=== PATIENT | female | born 1960 | race Asian ===

== ENCOUNTER 2021-10-30 20:05 | Inpatient (IN) | payer OTHER ==
[~2021-10-30 20:05] MED LIST: Iopamidol 300 61% 100 ML VIAL FS ONE
[2021-10-30] MEDS ORDERED: Morphine 4 MG/ML VIAL ONE (20:55)
[2021-10-30] MEDS ORDERED: hydrALAZINE 25 MG TAB ONE (20:56)
[2021-10-30] MEDS ORDERED: hydrALAZINE 20 MG/ML VIAL ONE (20:56)
[2021-10-30 21:00] LABS: #Basophils 0.1 10x3/uL (0.0-0.2); #Eosinphils 0.7 10x3/uL (0.0-0.5); #Monocytes 0.5 10x3/uL (0.0-1.1); #Neutrophils 2.1 10x3/uL (1.5-8.4); %Basophils 1.3 % (0.0-2.0); %Eosinophils 15.6 % (0.0-6.0); %Lymphocytes 25.7 % (18.0-47.0); %Monocytes 11.6 % (0.0-10.0); %Neutrophils 45.2 % (40.0-75.0); Hemoglobin 10.8 g/dL (12.0-15.5); Mean Corpuscular HGB CONC 34.8 g/dL (32.0-36.0); Mean Corpuscular Hemoglobin 33.8 pg (27.0-33.0); Mean Corpuscular Volume 96.9 fl (81.6-98.3); Mean Platelet Volume 9.8 fl (7.4-10.4); Platelet Count 146 10x3/uL (150-450); RBC Distribution Width 14.6 % (11.5-14.5); White Blood Cell (WBC) Count 4.7 10x3/uL (3.5-10.5)
[2021-10-30 21:12] LABS: ALT (SGPT) 12 U/L (8-55); AST (SGOT) 21 U/L (5-34); Albumin 3.8 g/dL (3.5-5.0); Alkaline Phosphatase 41 U/L (40-110); Anion Gap 24 mmol/L (10-20); BUN (Urea Nitrogen) 72 mg/dL (9.8-20.1); Bilirubin, Total 0.7 mg/dL (0.2-1.2); Calc. Creatinine Clearance 0 mL/min (70-130); Calcium 9.7 mg/dL (7.8-10.44); Carbon Dioxide 23 mmol/L (22-29); Chloride 93 mmol/L (98-107); Globulin 3.5 g/dL (2.4-3.5); Glucose 83 mg/dL (70-105); Protein, Total 7.3 g/dL (6.0-8.3); Sodium 133 mmol/L (136-145)
[2021-10-30 21:19] LABS: Potassium 7.4 mmol/L (3.5-5.1)
[2021-10-30 21:33] LABS: CKMB 1.3 ng/mL (0-6.6)
[2021-10-30] MEDS ORDERED: cefTRIAXone\\ROCEPHIN 1 GM VIAL ONE (21:48)
[2021-10-30] MEDS ORDERED: Azithromycin 500 MG VIAL ONE (21:49)
[2021-10-30 22:51] LABS: SARS-CoV-2 NAA Rapid Test Not Detected (NotDetected)
[2021-10-30] MEDS ORDERED: Acetaminophen 325 MG TAB PO PRN (23:20)
[2021-10-30] MEDS ORDERED: VANCOMYCIN 1.25 GM/250 ML BAG IVPB SCH (23:30)
[2021-10-30] MEDS ORDERED: VANCOMYCIN 1.25 GM/250 ML BAG 1.25 GM in Premix Bag 1 BAG IVPB SCH (23:45)
[2021-10-30] MEDS ORDERED: Promethazine HCl 12.5 MG, Admixture Fee 1 EACH in Sodium Chloride 0.9% 50 ML IVPB PRN (23:45)
[2021-10-31] MEDS ORDERED: Cefepime 1 GM in Sodium Chloride 0.9% 100 ML IVPB SCH ×2 (00:15→07:30)
[2021-10-31] MEDS ORDERED: Vancomycin Hemodialysis Sliding Scale FS SCH (00:15)
[2021-10-31 00:28] LABS: Hep B Surf Ag Non-Reactive S/CO (NonReactive)
[2021-10-31 00:36] LABS: HBSAg Index 0.19 S/CO (0-0.99)
[2021-10-31] MEDS: Vancomycin HCl 1 GM in Sodium Chloride 0.9% 250 ML 250 ML IVPB SCH ×2 (00:56→01:20)
[2021-10-31] MEDS ORDERED: Vancomycin HCl 1 GM in Sodium Chloride 0.9% 250 ML 250 ML IVPB SCH (03:00)
[2021-10-31 04:23] LABS: Troponin I 0.063 ng/mL (< 0.028)
[2021-10-31 04:25] LABS: Anion Gap 17 mmol/L (10-20); BUN (Urea Nitrogen) 21 mg/dL (9.8-20.1); Calc. Creatinine Clearance 10 mL/min (70-130); Calcium 8.9 mg/dL (7.8-10.44); Carbon Dioxide 29 mmol/L (22-29); Chloride 91 mmol/L (98-107); Glucose 78 mg/dL (70-105); Magnesium 1.9 mg/dL (1.6-2.6); Potassium 3.9 mmol/L (3.5-5.1); Sodium 133 mmol/L (136-145)
[2021-10-31 04:31] LABS: #Eosinphils 0.2 10x3/uL (0.0-0.5); #Monocytes 0.4 10x3/uL (0.0-1.1); #Neutrophils 2.5 10x3/uL (1.5-8.4); %Basophils 1.1 % (0.0-2.0); %Monocytes 11.1 % (0.0-10.0); %Neutrophils 69.5 % (40.0-75.0); Hemoglobin 9.1 g/dL (12.0-15.5); Mean Corpuscular HGB CONC 32.9 g/dL (32.0-36.0); Mean Corpuscular Hemoglobin 32.9 pg (27.0-33.0); Mean Corpuscular Volume 97.5 fl (81.6-98.3); Mean Platelet Volume 9.7 fl (7.4-10.4); Platelet Count 133 10x3/uL (150-450); RBC Distribution Width 14.5 % (11.5-14.5); Red Blood Cell (RBC) Count 2.77 10x6/uL (3.90-5.03); White Blood Cell (WBC) Count 3.6 10x3/uL (3.5-10.5)
[2021-10-31] MEDS: Levothyroxine Sodium 125 MCG TAB PO SCH (05:43)
[2021-10-31] MEDS ORDERED: Labetalol HCl 100 MG/20 ML VIAL SLOW IVP SCH (06:00)
[2021-10-31] MEDS: Heparin 5,000 UNITS/ML VIAL SC SCH ×3 (08:00→20:08)
[2021-10-31] MEDS: Metoprolol Tartrate 25 MG TAB PO SCH ×2 (09:16→20:06)
[2021-10-31] MEDS ORDERED: Artificial Tear Sol 15 ML BOT EA EYE PRN (09:47)
[2021-10-31] MEDS ORDERED: Loratadine 10 MG TAB PO PRN (09:47)
[2021-10-31] MEDS ORDERED: Acetaminophen 650 MG Suppository PR PRN (09:47)
[2021-10-31] MEDS ORDERED: Moisturizing Cream (Eucerin) 113 GM JAR TOP PRN (09:47)
[2021-10-31] MEDS ORDERED: Promethazine 25 MG TAB PO PRN (09:47)
[2021-10-31] MEDS ORDERED: Calcium Carbonate 500 MG ChewTAB PO PRN (09:47)
[2021-10-31] MEDS ORDERED: Sodium Chloride 0.65% Nasal 44 ML BOT EA NARE PRN (09:47)
[2021-10-31] MEDS ORDERED: Promethazine HCl 25 MG SUPP PR PRN (09:47)
[2021-10-31] MEDS: Benzonatate 100 MG CAP PO PRN ×2 (09:59→16:58)
[2021-10-31] MEDS: Sevelamer Carbonate 800 MG TAB PO SCH ×2 (12:11→16:59)
[2021-10-31 13:09] LABS: HBSAB Concentration 678.52 mIU/mL; Hep B Surf AB Reactive (NonReactive)
[2021-10-31] MEDS: cefTRIAXone\\ROCEPHIN 1 GM in Sodium Chloride 0.9% 100 ML IVPB SCH (20:08)
[2021-11-01] MEDS: Benzonatate 100 MG CAP PO PRN ×3 (02:21→16:16)
[2021-11-01 04:51] LABS: #Basophils 0.1 10x3/uL (0.0-0.2); #Eosinphils 0.8 10x3/uL (0.0-0.5); #Monocytes 0.6 10x3/uL (0.0-1.1); #Neutrophils 1.8 10x3/uL (1.5-8.4); %Basophils 1.2 % (0.0-2.0); %Lymphocytes 22.1 % (18.0-47.0); %Monocytes 14.9 % (0.0-10.0); %Neutrophils 43.3 % (40.0-75.0); Hemoglobin 9.8 g/dL (12.0-15.5); Mean Corpuscular HGB CONC 33.6 g/dL (32.0-36.0); Mean Corpuscular Hemoglobin 33.1 pg (27.0-33.0); Mean Corpuscular Volume 98.6 fl (81.6-98.3); Mean Platelet Volume 10.2 fl (7.4-10.4); Platelet Count 100 10x3/uL (150-450); RBC Distribution Width 14.8 % (11.5-14.5); Red Blood Cell (RBC) Count 2.96 10x6/uL (3.90-5.03); White Blood Cell (WBC) Count 4.2 10x3/uL (3.5-10.5)
[2021-11-01 04:54] LABS: ALT (SGPT) 9 U/L (8-55); AST (SGOT) 22 U/L (5-34); Albumin 3.1 g/dL (3.5-5.0); Alkaline Phosphatase 35 U/L (40-110); Anion Gap 19 mmol/L (10-20); BUN (Urea Nitrogen) 33 mg/dL (9.8-20.1); Bilirubin, Total 0.4 mg/dL (0.2-1.2); Calc. Creatinine Clearance 6 mL/min (70-130); Calcium 9.3 mg/dL (7.8-10.44); Carbon Dioxide 25 mmol/L (22-29); Chloride 94 mmol/L (98-107); Globulin 3.4 g/dL (2.4-3.5); Glucose 70 mg/dL (70-105); Potassium 5.3 mmol/L (3.5-5.1); Protein, Total 6.5 g/dL (6.0-8.3); Sodium 133 mmol/L (136-145)
[2021-11-01 05:04] LABS: Iron 106 ug/dL (50-170); Iron Binding Capacity, Total 160 mcg/dL (265-497)
[2021-11-01] MEDS: Levothyroxine Sodium 125 MCG TAB PO SCH (06:15)
[2021-11-01 08:45] VITALS: BMI 22.7
[2021-11-01] MEDS: Famotidine/PF 20 mg/2ml Vial SLOW IVP SCH (08:58)
[2021-11-01] MEDS: Sevelamer Carbonate 800 MG TAB PO SCH ×3 (08:58→17:00)
[2021-11-01] MEDS: Metoprolol Tartrate 25 MG TAB PO SCH ×2 (08:59→20:26)
[2021-11-01] MEDS: Heparin 5,000 UNITS/ML VIAL SC SCH (10:00)
[2021-11-01] MEDS: GUAIFENESIN SF SOLN 200 MG/10 ML UDCUP PO PRN ×2 (13:42→17:05)
[2021-11-01] MEDS ORDERED: hydrALAZINE 20 MG/ML VIAL SLOW IVP PRN (18:24)
[2021-11-01] MEDS ORDERED: NIFEdipine XL 30 MG TAB PO SCH (18:30)
[2021-11-01] MEDS: Labetalol HCl 100 MG/20 ML VIAL SLOW IVP PRN (18:36)
[2021-11-01] MEDS: cefTRIAXone\\ROCEPHIN 1 GM in Sodium Chloride 0.9% 100 ML IVPB SCH (20:26)
[2021-11-02] MEDS: Benzonatate 100 MG CAP PO PRN (02:34)
[2021-11-02 04:46] LABS: ALT (SGPT) 9 U/L (8-55); AST (SGOT) 19 U/L (5-34); Albumin 3.2 g/dL (3.5-5.0); Alkaline Phosphatase 36 U/L (40-110); Anion Gap 16 mmol/L (10-20); BUN (Urea Nitrogen) 23 mg/dL (9.8-20.1); Bilirubin, Total 0.4 mg/dL (0.2-1.2); Calc. Creatinine Clearance 8 mL/min (70-130); Carbon Dioxide 26 mmol/L (22-29); Chloride 95 mmol/L (98-107); Globulin 3.3 g/dL (2.4-3.5); Glucose 76 mg/dL (70-105); Potassium 4.5 mmol/L (3.5-5.1); Protein, Total 6.5 g/dL (6.0-8.3); Sodium 132 mmol/L (136-145)
[2021-11-02 04:54] LABS: Platelet Count 139 10x3/uL (150-450)
[2021-11-02 04:55] LABS: #Basophils 0.1 10x3/uL (0.0-0.2); #Eosinphils 0.9 10x3/uL (0.0-0.5); #Monocytes 0.5 10x3/uL (0.0-1.1); #Neutrophils 1.7 10x3/uL (1.5-8.4); %Basophils 1.7 % (0.0-2.0); %Eosinophils 22.4 % (0.0-6.0); %Lymphocytes 22.8 % (18.0-47.0); %Monocytes 12.3 % (0.0-10.0); %Neutrophils 40.6 % (40.0-75.0); Hemoglobin 9.6 g/dL (12.0-15.5); Mean Corpuscular HGB CONC 33.7 g/dL (32.0-36.0); Mean Corpuscular Hemoglobin 32.9 pg (27.0-33.0); Mean Corpuscular Volume 97.6 fl (81.6-98.3); Red Blood Cell (RBC) Count 2.92 10x6/uL (3.90-5.03); White Blood Cell (WBC) Count 4.2 10x3/uL (3.5-10.5)
[2021-11-02] MEDS: Levothyroxine Sodium 125 MCG TAB PO SCH (05:29)
[2021-11-02] MEDS: Sevelamer Carbonate 800 MG TAB PO SCH ×4 (09:21→16:56)
[2021-11-02] MEDS: NIFEdipine XL 30 MG TAB PO SCH (09:22)
[2021-11-02] MEDS: Metoprolol Tartrate 25 MG TAB PO SCH ×2 (09:22→20:38)
[2021-11-02] MEDS: Famotidine/PF 20 mg/2ml Vial SLOW IVP SCH (09:22)
[2021-11-02] MEDS: Acetaminophen 500 MG TAB PO PRN (13:27)
[2021-11-02] MEDS: GUAIFENESIN SF SOLN 200 MG/10 ML UDCUP PO PRN (13:27)
[2021-11-02] MEDS: cefTRIAXone\\ROCEPHIN 1 GM in Sodium Chloride 0.9% 100 ML IVPB SCH (20:38)
[2021-11-02] MEDS ORDERED: Vancomycin 1 GM in Premix Bag 1 BAG IVPB SCH (21:00)
[2021-11-03] MEDS: Levothyroxine Sodium 125 MCG TAB PO SCH (05:57)
[2021-11-03] MEDS: Sevelamer Carbonate 800 MG TAB PO SCH ×3 (08:17→17:16)
[2021-11-03] MEDS: NIFEdipine XL 30 MG TAB PO SCH (08:17)
[2021-11-03] MEDS: Metoprolol Tartrate 25 MG TAB PO SCH ×2 (08:17→20:54)
[2021-11-03] MEDS: Famotidine/PF 20 mg/2ml Vial SLOW IVP SCH (08:17)
[2021-11-03] MEDS: Acetaminophen 500 MG TAB PO PRN (11:46)
[2021-11-03] MEDS: Labetalol HCl 100 MG/20 ML VIAL SLOW IVP PRN (15:18)
[2021-11-03 19:54] VITALS: BP 156/74; TEMP 96.4
[2021-11-03] MEDS: cefTRIAXone\\ROCEPHIN 1 GM in Sodium Chloride 0.9% 100 ML IVPB SCH (20:54)
== END 2021-11-03 20:50 | disposition home or self-care (01) | DRG 193 ==
LOC: CSHERS 20:05 → CSHICU 23:05 → CSHTELE 11-03 12:05
PROVIDERS: ADMIT Family Medicine; ATTEND Internal Medicine
PROC: 5A1D70Z Performance of Urinary Filtration, Intermittent, Less than 6 Hours Per Day (ICD-10-PCS; principal; 2021-10-31)
DX: J18.9 Pneumonia, unspecified organism (principal); J96.01 Acute respiratory failure with hypoxia; N18.6 End stage renal disease; I12.0 Hypertensive chronic kidney disease with stage 5 chronic kidney disease or end stage renal disease; E87.1 Hypo-osmolality and hyponatremia; J90 Pleural effusion, not elsewhere classified; R78.81 Bacteremia; E87.5 Hyperkalemia; E87.70 Fluid overload, unspecified; N28.1 Cyst of kidney, acquired; D63.1 Anemia in chronic kidney disease; D69.6 Thrombocytopenia, unspecified; I16.0 Hypertensive urgency; E78.5 Hyperlipidemia, unspecified; E03.9 Hypothyroidism, unspecified; Z20.822 Contact with and (suspected) exposure to COVID-19; Z90.49 Acquired absence of other specified parts of digestive tract; Z79.899 Other long term (current) drug therapy; Z79.890 Hormone replacement therapy; Z99.2 Dependence on renal dialysis; Z90.710 Acquired absence of both cervix and uterus
CPT/HCPCS: 36415; 71045; 74177; 80048; 80053; 82553; 83540; 83550; 83605; 83735; 83880; 84145; 84443; 84484; 85025; 86706; 87040; 87081; 87149; 87340; 90935; 93005; 93010; 93306; 94760; G0257; J0360; J0456; J0692; J0696; J1644; J1956; J2270; J3370; J3490; J7050; Q9967; S0028; U0002

== ENCOUNTER 2022-02-21 16:58 | Emergency (ER) | payer OTHER ==
[2022-02-21 18:16] LABS: #Basophils 0.1 10x3/uL (0.0-0.2); #Eosinphils 1.5 10x3/uL (0.0-0.5); #Monocytes 0.4 10x3/uL (0.0-1.1); #Neutrophils 1.6 10x3/uL (1.5-8.4); %Basophils 2.1 % (0.0-2.0); %Eosinophils 30.3 % (0.0-6.0); %Lymphocytes 25.9 % (18.0-47.0); %Neutrophils 32.5 % (40.0-75.0); Hemoglobin 8.5 g/dL (12.0-15.5); Mean Corpuscular HGB CONC 33.2 g/dL (32.0-36.0); Mean Corpuscular Hemoglobin 31.7 pg (27.0-33.0); Mean Corpuscular Volume 95.5 fl (81.6-98.3); Mean Platelet Volume 9.3 fl (7.4-10.4); Platelet Count 108 10x3/uL (150-450); RBC Distribution Width 15.4 % (11.5-14.5); Red Blood Cell (RBC) Count 2.68 10x6/uL (3.90-5.03); White Blood Cell (WBC) Count 4.8 10x3/uL (3.5-10.5)
[2022-02-21 18:30] LABS: ALT (SGPT) 10 U/L (8-55); AST (SGOT) 21 U/L (5-34); Albumin 3.3 g/dL (3.5-5.0); Alkaline Phosphatase 43 U/L (40-110); Anion Gap 20 mmol/L (10-20); BUN (Urea Nitrogen) 64 mg/dL (9.8-20.1); Bilirubin, Total 0.8 mg/dL (0.2-1.2); Calc. Creatinine Clearance 0 mL/min (70-130); Calcium 9.6 mg/dL (7.8-10.44); Carbon Dioxide 27 mmol/L (22-29); Chloride 92 mmol/L (98-107); Estimated GFR 3; Globulin 3.7 g/dL (2.4-3.5); Glucose 83 mg/dL (70-105); Lipase 81 U/L (8-78); Sodium 132 mmol/L (136-145)
[2022-02-21 18:38] LABS: Potassium 6.7 mmol/L (3.5-5.1)
[2022-02-21 18:50] LABS: CKMB 0.8 ng/mL (0-6.6)
[2022-02-21 19:06] LABS: Eosinophils 40 % (0-10); Monocytes 8 % (0-10)
[2022-02-21 19:07] LABS: Anisocytosis SLIGHT = 6-15 cells (100X) (0-5/hpf)
[2022-02-21 19:08] LABS: Large Platelets SLIGHT; Platelet Morphology Comment Appears Decreased
[2022-02-21 19:09] LABS: Lymphocytes 22 % (21-51); Neutrophil 26 % (42-75)
[2022-02-21] MEDS ORDERED: Ketorolac Tromethamine 30 MG/ML VIAL ONE (19:20)
== END 2022-02-22 00:03 | disposition home or self-care (01) ==
LOC: CSHERS 16:58
DX: N17.9 Acute kidney failure, unspecified (principal); I12.9 Hypertensive chronic kidney disease with stage 1 through stage 4 chronic kidney disease, or unspecified chronic kidney disease; N18.9 Chronic kidney disease, unspecified; B34.9 Viral infection, unspecified; E03.9 Hypothyroidism, unspecified
CPT/HCPCS: 74176; 80053; 82553; 83690; 84484; 85025; 90935; 93005; 94760; 96372; G0257; J1885

== ENCOUNTER 2022-03-06 10:15 | Observation (INO) | payer OTHER ==
[2022-03-06 11:14] LABS: #Basophils 0.1 10x3/uL (0.0-0.2); #Eosinphils 1.1 10x3/uL (0.0-0.5); #Monocytes 0.4 10x3/uL (0.0-1.1); #Neutrophils 1.7 10x3/uL (1.5-8.4); %Eosinophils 23.8 % (0.0-6.0); %Lymphocytes 26.7 % (18.0-47.0); %Neutrophils 38.3 % (40.0-75.0); Hemoglobin 9.6 g/dL (12.0-15.5); Mean Corpuscular HGB CONC 32.7 g/dL (32.0-36.0); Mean Corpuscular Hemoglobin 32.3 pg (27.0-33.0); Mean Platelet Volume 9.7 fl (7.4-10.4); Platelet Count 111 10x3/uL (150-450); RBC Distribution Width 15.7 % (11.5-14.5); Red Blood Cell (RBC) Count 2.97 10x6/uL (3.90-5.03); White Blood Cell (WBC) Count 4.5 10x3/uL (3.5-10.5)
[2022-03-06 11:17] LABS: ALT (SGPT) 7 U/L (8-55); AST (SGOT) 20 U/L (5-34); Albumin 3.6 g/dL (3.5-5.0); Alkaline Phosphatase 47 U/L (40-110); Anion Gap 17 mmol/L (10-20); BUN (Urea Nitrogen) 51 mg/dL (9.8-20.1); Bilirubin, Total 1.1 mg/dL (0.2-1.2); Calc. Creatinine Clearance 0 mL/min (70-130); Calcium 10.2 mg/dL (7.8-10.44); Carbon Dioxide 27 mmol/L (22-29); Chloride 93 mmol/L (98-107); Estimated GFR 4; Globulin 3.8 g/dL (2.4-3.5); Glucose 95 mg/dL (70-105); Potassium 5.6 mmol/L (3.5-5.1); Protein, Total 7.4 g/dL (6.0-8.3); Sodium 131 mmol/L (136-145)
[2022-03-06 11:39] LABS: CKMB 0.8 ng/mL (0-6.6)
[2022-03-06] MEDS ORDERED: Ondansetron PF 4 MG/2 ML Vial ONE (11:46)
[2022-03-06] MEDS ORDERED: Acetaminophen 325 MG TAB PO PRN (12:35)
[2022-03-06] MEDS ORDERED: Ondansetron ODT 4 MG TAB PO PRN (12:35)
[2022-03-06] MEDS ORDERED: Ondansetron PF 4 MG/2 ML Vial IVP PRN (12:35)
[2022-03-06] MEDS ORDERED: cefTRIAXone\\ROCEPHIN 1 GM in Sodium Chloride 0.9% 100 ML IVPB SCH ×3 (12:45→20:00)
[2022-03-06 13:13] LABS: SARS-CoV-2 NAA Rapid Test Not Detected (NotDetected)
[2022-03-06] MEDS ORDERED: hydrALAZINE 20 MG/ML VIAL SLOW IVP PRN (13:56)
[2022-03-06 14:14] LABS: Troponin I 0.061 ng/mL (< 0.028)
[2022-03-06 15:22] VITALS: BMI 21.0
[2022-03-06] MEDS: Azithromycin 500 MG in Sodium Chloride 0.9% 250 ML 250 ML IVPB SCH (16:38)
[2022-03-06] MEDS: Heparin 5,000 UNITS/ML VIAL SC SCH ×2 (17:09→23:43)
[2022-03-06 18:24] LABS: Troponin I 0.055 ng/mL (< 0.028)
[2022-03-07 06:44] LABS: #Basophils 0.1 10x3/uL (0.0-0.2); #Eosinphils 0.8 10x3/uL (0.0-0.5); #Monocytes 0.3 10x3/uL (0.0-1.1); #Neutrophils 1.2 10x3/uL (1.5-8.4); %Basophils 2.1 % (0.0-2.0); %Eosinophils 23.6 % (0.0-6.0); %Lymphocytes 27.8 % (18.0-47.0); %Monocytes 8.8 % (0.0-10.0); %Neutrophils 37.4 % (40.0-75.0); Hemoglobin 8.5 g/dL (12.0-15.5); Mean Corpuscular HGB CONC 33.5 g/dL (32.0-36.0); Mean Corpuscular Hemoglobin 32.6 pg (27.0-33.0); Mean Corpuscular Volume 97.3 fl (81.6-98.3); Mean Platelet Volume 9.2 fl (7.4-10.4); Platelet Count 74 10x3/uL (150-450); RBC Distribution Width 15.5 % (11.5-14.5); Red Blood Cell (RBC) Count 2.61 10x6/uL (3.90-5.03); White Blood Cell (WBC) Count 3.3 10x3/uL (3.5-10.5)
[2022-03-07 06:53] LABS: Anion Gap 10 mmol/L (10-20); BUN (Urea Nitrogen) 17 mg/dL (9.8-20.1); Calc. Creatinine Clearance 10 mL/min (70-130); Calcium 8.1 mg/dL (7.8-10.44); Carbon Dioxide 33 mmol/L (22-29); Chloride 98 mmol/L (98-107); Estimated GFR 9; Glucose 67 mg/dL (70-105); Potassium 4.1 mmol/L (3.5-5.1); Sodium 137 mmol/L (136-145)
[2022-03-07] MEDS: Heparin 5,000 UNITS/ML VIAL SC SCH ×2 (08:44→15:07)
[2022-03-07 13:43] VITALS: BP 177/84; TEMP 98.2
[2022-03-07] MEDS: Azithromycin 500 MG in Sodium Chloride 0.9% 250 ML 250 ML IVPB SCH (15:07)
== END 2022-03-07 15:18 | disposition home or self-care (01) ==
LOC: CSHERS 10:15 → CSHTELE 13:57
PROVIDERS: ADMIT Family Medicine; ATTEND Internal Medicine
DX: I12.0 Hypertensive chronic kidney disease with stage 5 chronic kidney disease or end stage renal disease (principal); N18.6 End stage renal disease; D63.1 Anemia in chronic kidney disease; E87.5 Hyperkalemia; R60.9 Edema, unspecified; E03.9 Hypothyroidism, unspecified; J96.01 Acute respiratory failure with hypoxia; J90 Pleural effusion, not elsewhere classified; R10.9 Unspecified abdominal pain; Z79.899 Other long term (current) drug therapy; Z20.822 Contact with and (suspected) exposure to COVID-19; Z99.2 Dependence on renal dialysis; Z90.49 Acquired absence of other specified parts of digestive tract; Z90.710 Acquired absence of both cervix and uterus; R77.8 Other specified abnormalities of plasma proteins
CPT/HCPCS: 36415; 71045; 80048; 80053; 82553; 83690; 84484; 85025; 87040; 90935; 93005; 94760; 96365; 96366; 96372; 96375; G0257; G0378; J0456; J0696; J1644; J1956; J2405; J3490; J7050

== ENCOUNTER 2022-05-30 14:13 | Emergency (ER) | payer OTHER ==
[2022-05-30 14:58] LABS: #Basophils 0.1 10x3/uL (0.0-0.2); #Eosinphils 0.2 10x3/uL (0.0-0.5); #Monocytes 1.1 10x3/uL (0.0-1.1); #Neutrophils 15.7 10x3/uL (1.5-8.4); %Basophils 0.5 % (0.0-2.0); %Lymphocytes 3.7 % (18.0-47.0); %Monocytes 6.4 % (0.0-10.0); %Neutrophils 87.9 % (40.0-75.0); Hemoglobin 11.2 g/dL (12.0-15.5); Mean Corpuscular HGB CONC 32.7 g/dL (32.0-36.0); Mean Corpuscular Hemoglobin 32.9 pg (27.0-33.0); Mean Corpuscular Volume 100.9 fl (81.6-98.3); Mean Platelet Volume 9.3 fl (7.4-10.4); Platelet Count 124 10x3/uL (150-450); RBC Distribution Width 15.4 % (11.5-14.5); White Blood Cell (WBC) Count 17.9 10x3/uL (3.5-10.5)
[2022-05-30 15:06] LABS: INR-International Normal Ratio 1.1; PTT 30.6 sec (22.0-33.0); Prothrombin Time 11.4 sec (9.5-12.1)
[2022-05-30 15:39] LABS: CKMB 0.7 ng/mL (0-6.6)
[2022-05-30 15:55] LABS: ALT (SGPT) 20 U/L (8-55); AST (SGOT) 29 U/L (5-34); Albumin 3.3 g/dL (3.5-5.0); Alkaline Phosphatase 78 U/L (40-110); Anion Gap 15 mmol/L (10-20); BUN (Urea Nitrogen) 22 mg/dL (9.8-20.1); Bilirubin, Total 0.7 mg/dL (0.2-1.2); CRP (Inflammatory) 6.72 mg/dL (= or < 0.5); Calc. Creatinine Clearance 0 mL/min (70-130); Calcium 10.3 mg/dL (7.8-10.44); Carbon Dioxide 29 mmol/L (22-29); Chloride 96 mmol/L (98-107); Estimated GFR 11; Globulin 4.7 g/dL (2.4-3.5); Glucose 78 mg/dL (70-105); Magnesium 2.1 mg/dL (1.6-2.6); Potassium 4.7 mmol/L (3.5-5.1); Sodium 135 mmol/L (136-145)
[2022-05-30] MEDS ORDERED: Piperacillin/Tazobactam 4.5 GM VIAL ONE (16:33)
[2022-05-30] MEDS ORDERED: Acetaminophen 500 MG TAB ONE (16:33)
[2022-05-30] MEDS ORDERED: Vancomycin 1 GM VIAL ONE (17:11)
[2022-05-30 19:56] LABS: Platelet Morphology Comment Appears Decreased
[2022-05-30 19:57] LABS: Anisocytosis SLIGHT = 6-15 cells (100X) (0-5/hpf); Hypochromia SLIGHT = 6-15 cells (100X) (0-5/hpf); Macrocytosis SLIGHT = 6-15 cells (100X) (0-5/hpf); Microcytosis SLIGHT = 6-15 cells (100X) (0-5/hpf); Polychromasia SLIGHT = 2-3 cells (100X) (0-2/hpf)
== END 2022-05-30 18:46 | disposition short-term general hospital (02) ==
LOC: CSHERS 14:13
DX: J90 Pleural effusion, not elsewhere classified (principal); R09.02 Hypoxemia; I10 Essential (primary) hypertension; E03.9 Hypothyroidism, unspecified
CPT/HCPCS: 70450; 71045; 80053; 82553; 83605; 83690; 83735; 83880; 84443; 84484; 85025; 85610; 85730; 86140; 86850; 86900; 86901; 87040; 87077; 87149; 87186; 93005; 94760; 96365; 96375; J2543; J3370